=== PATIENT | female | born 1955 | race Caucasian/White ===

== ENCOUNTER → 2017-08-24 | Outpatient (CLI) | payer BC ==
--- NOTE | 2017-08-25 10:24 | MM ---
Reason for exam: screening (asymptomatic). Last mammogram was performed 1 year ago. History: Patient is postmenopausal. Family history of breast cancer in mother at age 55. Physical Findings: A clinical breast exam by your physician is recommended on an annual basis and results should be correlated with mammographic findings. MG Screening Mammo w CAD Bilateral CC and MLO view(s) were taken. Prior study comparison: August 23, 2016, bilateral MG screening mammo w CAD. August 20, 2015, bilateral MG screening mammo w CAD. July 12, 2014, bilateral MG screening mammo w CAD. The breast tissue is heterogeneously dense. This may lower the sensitivity of mammography. No significant changes when compared with prior studies. ASSESSMENT: Negative, BI-RAD 1 RECOMMENDATION: Routine screening mammogram of both breasts in 1 year.
== END | disposition home or self-care (01) ==
LOC: RADMAMWWP 15:35
PROVIDERS: ATTEND Obstetrics & Gynecology
DX: Z12.31 Encounter for screening mammogram for malignant neoplasm of breast (principal); Z80.3 Family history of malignant neoplasm of breast

== ENCOUNTER → 2017-12-23 | Outpatient (CLI) | payer BC ==
--- NOTE | 2017-12-23 15:24 | BD ---
EXAMINATION TYPE: MG DEXA axial skeleton. DATE OF EXAM: 12/23/2017 COMPARISON: NONE CLINICAL HISTORY: Postmenopausal female. Osteoporosis screening. Height: 64 IN Weight: 163 LBS FRAX RISK QUESTIONS: Alcohol (3 or more units per day): NO Family History (Parent hip fracture): NO Glucocorticoids (More than 3mos): NO (Ex: prednisone, prednisolone, methylprednisolone, dexamethasone, and hydrocortisone). History of Fracture in Adulthood: NO Secondary Osteoporosis: 1. Type 1 Diabetes: NO 2. Hyperthyroidism: NO 3. Menopause before 45: NO 4. Malnutrition: NO 5. Chronic liver disease: NO Rheumatoid Arthritis: NO Current Tobacco Use: NO RISK FACTORS HISTORY OF: History of Wrist Fracture: YES CATHRYN When: AGE 16 Active: YES Diet low in dairy products/other sources of calcium: YES Postmenopausal woman: AGE 53 MEDICATIONS: Additional Medications: NONE EXAM MEASUREMENTS: Bone mineral densitometry was performed using the [employer] System. Bone mineral density as measured about the Lumbar spine is: ----- L1-L4(G/cm2): 1.046 T Score Values are as follows: ----- L2: -1.7 ----- L3: -1.6 ----- L4: -0.6 ----- L1-L4: -1.1 Bone mineral density has: Decreased -1.8% since study of: 10/08/2015 Bone mineral density about the R hip (g/cm2): 0.812 Bone mineral density about the L hip (g/cm2): 0.819 T Score values are as follows: -----R Neck: -1.6 -----L Neck: -1.6 -----R Total: -0.8 -----L Total: -0.8 Bone mineral density has: Increased 1.2% since study of: 10/08/2015 IMPRESSION: Osteopenia (T Score between -2.5 and -1 ) as noted by T score values with regards to the bilateral hi ps. There is slightly increased risk of fracture and the patient may be considered for treatment. Re-Screen 2-5 years. NOTE: T-SCORE=SD OF THE YOUNG ADULT MEAN.
== END | disposition home or self-care (01) ==
LOC: RADBDWWP 14:54
PROVIDERS: ATTEND Obstetrics & Gynecology
DX: M85.852 Other specified disorders of bone density and structure, left thigh (principal); M85.851 Other specified disorders of bone density and structure, right thigh
CPT/HCPCS: 77080

== ENCOUNTER → 2018-09-08 | Outpatient (CLI) | payer BC ==
--- NOTE | 2018-09-11 09:20 | MM ---
Reason for exam: screening (asymptomatic). Last mammogram was performed 1 year ago. History: Patient is postmenopausal. Family history of breast cancer in mother at age 55. Physical Findings: A clinical breast exam by your physician is recommended on an annual basis and results should be correlated with mammographic findings. MG Screening Mammo w CAD Bilateral CC and MLO view(s) were taken. Prior study comparison: August 24, 2017, bilateral MG screening mammo w CAD. August 23, 2016, bilateral MG screening mammo w CAD. The breast tissue is heterogeneously dense. This may lower the sensitivity of mammography. Stable benign calcifications. Focal asymmetry inner lower left breasat 6.1cm from nipple. This finding is changed when compared with previous exams. ASSESSMENT: Incomplete: need additional imaging evaluation, BI-RAD 0 RECOMMENDATION: Special view mammogram of the left breast. If lesion persists on supplemental views, image directed ultrasound is recommended. [facility] will attempt to contact patient to return for supplemental views and ultrasound if indicated.
== END | disposition home or self-care (01) ==
LOC: RADMAMWWP 10:54
PROVIDERS: ATTEND Obstetrics & Gynecology
DX: Z12.31 Encounter for screening mammogram for malignant neoplasm of breast (principal); Z80.3 Family history of malignant neoplasm of breast
CPT/HCPCS: 77067

== ENCOUNTER → 2018-09-20 | Outpatient (CLI) | payer BC ==
--- NOTE | 2018-09-21 09:27 | MM ---
Reason for exam: additional evaluation requested from abnormal screening. Last mammogram was performed less than 1 month ago. History: Patient is postmenopausal. Family history of breast cancer in mother at age 55. Physical Findings: Nurse did not find any significant physical abnormalities on exam. MG 3D Work Up W/Cad LT CC and MLO view(s) were taken of the left breast. Prior study comparison: September 08, 2018, bilateral MG screening mammo w CAD. August 24, 2017, bilateral MG screening mammo w CAD. The breast tissue is heterogeneously dense. This may lower the sensitivity of mammography. There is no discrete abnormality including area of concern. These results were verbally communicated with the patient and result sheet given to the patient on 09/20/18. ASSESSMENT: Probably benign, BI-RAD 3 RECOMMENDATION: Follow-up diagnostic mammogram of the left breast in 6 months.
== END | disposition home or self-care (01) ==
LOC: RADMAMWWP 09:36
PROVIDERS: ATTEND Obstetrics & Gynecology
DX: R92.8 Other abnormal and inconclusive findings on diagnostic imaging of breast (principal)
CPT/HCPCS: 77061; 77065

== ENCOUNTER → 2019-03-21 | Outpatient (CLI) | payer BC ==
--- NOTE | 2019-03-21 11:32 | MM ---
Reason for exam: follow-up at short interval from prior study. Last mammogram was performed 6 months ago. History: Patient is postmenopausal. Family history of breast cancer in mother at age 55. Physical Findings: Nurse did not find any significant physical abnormalities on exam. MG 3D Diag Mammo W/Cad LT CC and MLO view(s) were taken of the left breast. Prior study comparison: September 20, 2018, left breast MG 3d work up w/cad LT. September 08, 2018, bilateral MG screening mammo w CAD. The breast tissue is heterogeneously dense. This may lower the sensitivity of mammography. There is no discrete abnormality including area of concern. No significant new findings when compared with previous films. These results were verbally communicated with the patient and result sheet given to the patient on 03/21/19. ASSESSMENT: Negative, BI-RAD 1 RECOMMENDATION: Return to routine screening mammogram schedule for both breasts. Back on schedule.
== END | disposition home or self-care (01) ==
LOC: RADMAMWWP 10:57
PROVIDERS: ATTEND Obstetrics & Gynecology
DX: R92.8 Other abnormal and inconclusive findings on diagnostic imaging of breast (principal)
CPT/HCPCS: 77061; 77065

== ENCOUNTER → 2019-08-17 | Outpatient (CLI) | payer BC ==
--- NOTE | 2019-08-17 11:57 | MR ---
EXAMINATION TYPE: MR shoulder RT wo con DATE OF EXAM: 08/17/2019 COMPARISON: X-ray dated 08/01/2019 HISTORY: Right pain shoulder TECHNIQUE: Multiplanar, multisequence imaging of the right shoulder is performed without contrast. FINDINGS: There is a 5 to 6 mm near complete through thickness tear of the posterior fibers of the mayes praspinatus tendon near its attachment. Additional 2 mm area of abnormal signal along the anterior fi bers of the supraspinatus tendon near its attachment suspicious for partial tear. Trace amount of flu id in the subacromial bursa. Infraspinatus tendon is intact. Subscapularis tendon intact. Bicipital tendon is well situated the bicipital groove. Intracapsular portion of the biceps tendon an d biceps anchor intact. Mild narrowing of the AC joint with minimal mass effect and impingement upon the supraspinatus tendon and muscle. Bony labrum are intact by nonarthrogram technique. Tiny cyst involving the humeral head can be associated with chronic impingement. IMPRESSION: 1. There appears to be a 5 to 6 mm near complete through thickness tear posterior fibers supraspinatu s tendon near its attachment with no retraction. There is also very minimal impingement from the AC j oint. 2. Findings are also suspicious for a 2 to 3 mm partial tear along the anterior fibers of the suprasp inatus tendon near its attachment.
== END ==
LOC: RADMRIMAIN 10:02
PROVIDERS: ATTEND Orthopaedic Surgery
DX: M75.41 Impingement syndrome of right shoulder (principal); M25.511 Pain in right shoulder

== ENCOUNTER → 2019-09-06 | Outpatient (CLI) | payer BC ==
[2019-09-06 10:46] LABS: Basophils # (A) 0.1 k/uL (0-0.2); Basophils % (A) 1 %; Eosinophils # (A) 0.3 k/uL (0-0.7); Eosinophils % (A) 4 %; HCT 41.7 % (34.0-46.0); HGB 13.7 gm/dL (11.4-16.0); Lymphocytes # (A) 1.5 k/uL (1.0-4.8); Lymphocytes % (A) 20 %; MCH 27.9 pg (25.0-35.0); MCHC 32.8 g/dL (31.0-37.0); MCV 84.9 fL (80.0-100.0); Mean Platelet Volume 5.4; Monocytes # (A) 0.3 k/uL (0-1.0); Monocytes % (A) 5 %; Neutrophils % (A) 69 %; Platelet Count 349 k/uL (150-450); RBC 4.91 m/uL (3.80-5.40); RDW 12.2 % (11.5-15.5); WBC 7.2 k/uL (3.8-10.6)
[2019-09-06 10:56] LABS: Potassium 4.6 mmol/L (3.5-5.1)
== END | disposition home or self-care (01) ==
LOC: LABPAT 09:56
PROVIDERS: ATTEND Orthopaedic Surgery
DX: Z01.810 Encounter for preprocedural cardiovascular examination (principal); Z01.812 Encounter for preprocedural laboratory examination; M75.41 Impingement syndrome of right shoulder
CPT/HCPCS: 36415; 80051; 85025; 93005

== ENCOUNTER 2019-10-03 08:20 | Day surgery (SDC) | payer BC ==
[2019-10-02 08:38] VITALS: BMI 28.3
--- NOTE | 2019-10-02 13:37 | HP ---
HISTORY AND PHYSICAL DATE OF SURGERY: Surgery is scheduled for 10/03/2019. Marycruz Benjamin is a 64-year-old patient seen with progressive right shoulder pain. We discussed treatment options with her. She elected to proceed with right shoulder arthroscopy. Consent was obtained. PAST MEDICAL HISTORY: Noncontributory. PAST SURGICAL HISTORY: Knee arthroscopy. DAILY MEDICATIONS: None. ALLERGIES: None reported. SOCIAL HISTORY: She denies tobacco use. PHYSICAL EXAMINATION: Physical evaluation of right shoulder: Flexion 140 degrees, abduction 120 degrees, external rotation is 40 degrees with weakness. There is tenderness along the anterolateral acromion rotator cuff insertion site. Impingement sign is positive at 90 degrees. Drop-arm sign is positive. Her distal neurovascular exam is intact. Radiographs of the right shoulder revealed acromioclavicular joint osteoarthritis. Right shoulder MRI revealed rotator cuff tendon tear. IMPRESSION: Right shoulder impingement with rotator cuff tear. PLAN: Right shoulder arthroscopy with subacromial decompression, arthroscopic rotator cuff repair, Amy procedure and debridement. MMODL / IJN: [id number] /
[~2019-10-03 08:20] MED LIST: DEXAMETHASONE SOD PHOSPHATE 10 MG/ML 1 ML VIAL IV ONE; HYDROmorphone 0.5 MG/0.5 ML SYRINGE IVP PRN; LACTATED RINGERS 1,000 ML IV SCH; LIDOCAINE 1% 20 ML VIAL (10MG/ML) FOR IV START INTRADERMA PRN; MIDAZOLAM 2 MG/2 ML VIAL IV PRN; ONDANSETRON 4 MG/2 ML VIAL IVP ONE; SCOPOLAMINE 1.5MG/72HR PATCH TRANSDERM ONE
[2019-10-03] MEDS ORDERED: LIDOCAINE 1% INJ 10MG/ML (20 ML MDV) ONE (09:49)
[2019-10-03] MEDS ORDERED: SUCCINYLCHOLINE CHLORIDE VIAL 200 MG/10 ML VIAL IV ONE (09:49)
[2019-10-03] MEDS ORDERED: PROPOFOL 10 MG/ML 20 ML VIAL IV ONE (09:49)
[2019-10-03] MEDS ORDERED: fentaNYL (PF) 50 MCG/ML 2 ML AMP ONE (09:49)
[2019-10-03] MEDS ORDERED: ROPIVACAINE 5 MG/ML 30 ML VIAL ONE (09:49)
[2019-10-03] MEDS ORDERED: DEXAMETHASONE SOD PHOSPHATE 4 MG/ML 1 ML VIAL ONE (09:49)
[2019-10-03] MEDS ORDERED: MIDAZOLAM 2 MG/2 ML VIAL ONE (09:49)
[2019-10-03 11:22] VITALS: TEMP 97
--- NOTE | 2019-10-03 11:25 | P.OP ---
Date of Procedure: 10/03/19 Preoperative Diagnosis: Right shoulder impingement Postoperative Diagnosis: 1. Right shoulder rotator cuff tear 2. Right shoulder impingement 3. Right shoulder partial long head biceps tendon tear Procedure(s) Performed: 1. Right shoulder arthroscopic rotator cuff repair 2. Right shoulder arthroscopic subacromial decompression 3. Right shoulder arthroscopic biceps tenotomy Implants: 1Arthrex 5.5 swivel lock anchor Anesthesia: GETA, regional (Interscalene block) Surgeon: Miles Sawyer Youth Specialist #1: Elias Payton Estimated Blood Loss (ml): 12 Pathology: none sent Condition: stable Disposition: PACU Indications for Procedure: 64-year-old patient seen with progressive right shoulder pain. After treatment options were discussed, she elected to proceed with arthroscopy. Operative Findings: see description of procedure Description of Procedure: Patient underwent an interscalene block by department of anesthesia. The patient was then taken to the operative suite. The patient underwent a general anesthetic by the department of anesthesia. The patient was placed into a lateral position and secured. There was appropriate padding of the bony promi nence. Right shoulder was then prepped and draped in normal sterile orthopedic fashion. We placed the extremity in 10 pounds of longitudinal traction. A posterior incision was now made for a posterior working portal site. The trocar and cannula were inserted into the glenohumeral joint. Arthroscopy was initiated. Spinal needle was now inserted anteriorly, to ascertain the anterior working portal site. An incision was now made in that area, a trocar was inserted followed by a probe. There was partial tearing and hyperemia long head biceps tendon. There was some mild superficial fraying of the superior labrum. The remainder of the labrum appeared intact and stable. There were grade 1 chondromalacia changes of the superior portion humeral head with no osteochondral tears present. I performed an arthroscopic biceps tenotomy. I probed the superior labrum and it was stable. Instruments now removed from glenohumeral joint. Utilizing the posterior working portal site, the trocar and cannula were inserted into the subacromial space. Arthroscopy initiated. I made an incision 2 fingerbreadths lateral to the acromion. I introduced my trocar followed by my [employer]Care ablator. I now began ablating thick subacromial bursal tissue, which exposed the undersurface of the anterior acromion. There was diminished subacromial space. There was a very prominent anterior acromion. A motorized bur was introduced and a subacromial decompression was performed. I also excised some osteophytes off the inferior aspect of the distal clavicle. The acromioclavicular joint was noted have moderate arthritis. I did not think enough toward a Amy procedure. I turned my attention to the rotator cuff tendon. We probed the area and noted a full-thickness tear along the distal supraspinatus. I debrided the margins getting a good stable tendon tissue. The defect measured about 11 0.5 cm. I abraded the footprint with a motorized bur. I passed 2 everted mattress sutures through good bites of rotator cuff tendon. I punched along the footprint area for insertion of an anchor. All 4 limbs of suture were now placed through the eyelet of a 5.5 Arthrex anchor. The eyelet of the anchor was now placed into a pre-punch hole. Frank SALAZAR tension the sutures probe silvia while the anchor in position. Frank SALAZAR now deployed the anchor with good purchase noted. All residual suture limbs were now clipped. We had good compression of the tendon along the entire footprint. I injected 1 mL Renyte intra-articular. Instruments were now removed from the portal sites. All portal sites were approximated with nylon suture. Sterile dressings were applied followed by a shoulder sling. Elias SALAZAR assisted in this complex case. The patient was awakened, transferred to a bed, and taken to recovery in stable condition.
[2019-10-03] MEDS ORDERED: LACTATED RINGERS 1,000 ML IV ONE (11:35)
[2019-10-03 11:57] VITALS: RESP 16
[2019-10-03 12:20] VITALS: BP 151/83; PULSE 70
--- NOTE | 2019-10-08 13:52 | P.ANPRN ---
Procedure Note - Anesthesia - Nerve Block Performed Right Interscalene Single Time Out Performed: Yes Date of Procedure: 10/03/19 Procedure Start Time: 09:05 Procedure Stop Time: 09:10 Location of Patient: PreOp Indication: Acute Post-Operative Pain, Requested by Surgeon Sedation Type: Sedate with meaningful contact maintained Preparation: Sterile Prep Position: Supine Needle Types: Pajunk Needle Gauge: 21 Ultrasound used to visualize needle placement: Yes Ultrasound used to observe medication spread: Yes Blood Aspirated: No Pain Paresthesia on Injection Noted: No Resistance on Injection: Normal Image Stored and Saved: Yes Events: Uneventful and Well Tolerated (ropi .5% 30cc plus dexamethasone 4 mg)
== END 2019-10-03 13:05 | disposition home or self-care (01) ==
LOC: OR 08:20
PROVIDERS: ATTEND Orthopaedic Surgery
DX: M75.101 Unspecified rotator cuff tear or rupture of right shoulder, not specified as traumatic (principal); M75.41 Impingement syndrome of right shoulder; S46.111A Strain of muscle, fascia and tendon of long head of biceps, right arm, initial encounter; X58.XXXA Exposure to other specified factors, initial encounter; Z88.1 Allergy status to other antibiotic agents; Z88.2 Allergy status to sulfonamides; Z91.048 Other nonmedicinal substance allergy status
CPT/HCPCS: 29827; 29826; 64415; 76942; C1713 ×2; Q4212; J2250; J0330; J1100 ×2; J0690; J2405; J2001; J3010; J2795; J2704

== ENCOUNTER → 2020-01-07 | Outpatient (CLI) | payer BC ==
--- NOTE | 2020-01-07 11:59 | BD ---
EXAMINATION TYPE: Axial Bone Density DATE OF EXAM: 01/07/2020 COMPARISON: NONE CLINICAL HISTORY: 64-year-old female disorder of bone, postmenopausal screening. Height: 5 FT 4 IN Weight: 169 FRAX RISK QUESTIONS: Alcohol (3 or more units per day): NO Family History (Parent hip fracture): NO Glucocorticoids (More than 3mos): NO (Ex: prednisone, prednisolone, methylprednisolone, dexamethasone, and hydrocortisone). History of Fracture in Adulthood: NO Secondary Osteoporosis: 1. Type 1 Diabetes: NO 2. Hyperthyroidism: NO 3. Menopause before 45: NO 4. Malnutrition: NO 5. Chronic liver disease: NO Rheumatoid Arthritis: NO Current Tobacco Use: NO RISK FACTORS HISTORY OF: Active: YES Postmenopausal woman: AGE EARLY 50'S MEDICATIONS: Additional Medications: PAIN MEDS CURRENTLY FOR SHOULDER SURG Additional History: EXAM MEASUREMENTS: Bone mineral densitometry was performed using the [employer] System. Bone mineral density as measured about the Lumbar spine is: ----- L1-L4(G/cm2): 0.960 T Score Values are as follows: ----- L2: -2.5 ----- L3: -1.8 ----- L4: -1.4 ----- L1-L4: -1.8 Bone mineral density has: DECREASED -7.1 % since study of: 2017 Bone mineral density about the R hip (g/cm2): 0.779 Bone mineral density about the L hip (g/cm2): 0.826 T Score values are as follows: -----R Neck: -1.9 -----L Neck: -1.5 -----R Total: -1.2 -----L Total: -0.8 Bone mineral density has: DECREASED -2.6 % since study of: 2018 IMPRESSION: Osteopenia (T Score between -2.5 and -1). There is slightly increased risk of fracture and the patient may be considered for treatment. Re-Screen 2-5 years. NOTE: T-SCORE=SD OF THE YOUNG ADULT MEAN.
--- NOTE | 2020-01-08 09:54 | MM ---
Reason for exam: screening (asymptomatic). Last mammogram was performed 10 months ago. History: Patient is postmenopausal. Family history of breast cancer in mother at age 55. Physical Findings: A clinical breast exam by your physician is recommended on an annual basis and results should be correlated with mammographic findings. MG 3D Screening Mammo W/Cad Bilateral CC and MLO view(s) were taken. Prior study comparison: March 21, 2019, left breast MG 3d diag mammo w/cad LT. September 20, 2018, left breast MG 3d work up w/cad LT. The breast tissue is heterogeneously dense. This may lower the sensitivity of mammography. No significant changes when compared with prior studies. ASSESSMENT: Benign, BI-RAD 2 RECOMMENDATION: Routine screening mammogram of both breasts in 1 year.
== END | disposition home or self-care (01) ==
LOC: RADMAMWWP 09:15
PROVIDERS: ATTEND Obstetrics & Gynecology
DX: Z12.31 Encounter for screening mammogram for malignant neoplasm of breast (principal); M85.80 Other specified disorders of bone density and structure, unspecified site
CPT/HCPCS: 77063; 77067; 77080

== ENCOUNTER → 2021-02-24 | Outpatient (CLI) | payer BC ==
--- NOTE | 2021-02-26 10:55 | MM ---
Reason for exam: screening (asymptomatic). Last mammogram was performed 1 year and 2 months ago. History: Patient is postmenopausal. Family history of breast cancer in mother at age 55. Took hormonal contraceptives for 5 years. Physical Findings: A clinical breast exam by your physician is recommended on an annual basis and results should be correlated with mammographic findings. MG Screening Mammo w CAD Bilateral CC and MLO view(s) were taken. Prior study comparison: January 07, 2020, bilateral MG 3d screening mammo w/cad. March 21, 2019, left breast MG 3d diag mammo w/cad LT. The breast tissue is heterogeneously dense. This may lower the sensitivity of mammography. No significant changes when compared with prior studies. ASSESSMENT: Benign, BI-RAD 2 RECOMMENDATION: Routine screening mammogram of both breasts in 1 year.
== END | disposition home or self-care (01) ==
LOC: RADMAMWWP 12:04
PROVIDERS: ATTEND Obstetrics & Gynecology
DX: Z12.31 Encounter for screening mammogram for malignant neoplasm of breast (principal); Z78.0 Asymptomatic menopausal state; Z80.3 Family history of malignant neoplasm of breast
CPT/HCPCS: 77067

== ENCOUNTER → 2021-03-10 | Outpatient (CLI) | payer BC ==
--- NOTE | 2021-03-10 16:18 | XR ---
EXAMINATION TYPE: XR KUB DATE OF EXAM: 03/10/2021 4:10 PM CLINICAL HISTORY: History of renal stones with left-sided pain TECHNIQUE: Two supine KUB images of the abdomen are obtained. COMPARISON: None. FINDINGS: Scattered gas is seen in non-distended small bowel loops. Gas and fecal material is seen in non-distended colon. The amount of fecal material is prominent throughout the right and transverse c olon. Lung bases are clear. Left-sided pelvic phleboliths. Visualized osseous structures are intact. IMPRESSION: Moderate to severe proximal to mid colonic fecal stasis. No definitive nephrolithiasis.
--- NOTE | 2021-03-10 20:29 | US ---
EXAMINATION TYPE: US kidneys/renal and bladder DATE OF EXAM: 03/10/2021 COMPARISON: KUB today CLINICAL HISTORY: N20.0 Calculus of kidney. Left flank pain in November; long lasting UTI; prior renal stones per patient EXAM MEASUREMENTS: Right Kidney: 9.3 x 5.6 x 3.9 cm Left Kidney: 10.3 x 4.0 x 5.5 cm Post Void Residual Volume: 14.1 mL Right Kidney: superior pole hyperechoic round focus is noted in sinus = 1.9 x 1.9 x 1.8cm. Left Kidney: moderate hydronephrosis is noted; inferior pole hyperechoic focus = 0.6 x 0.6 x 0.4cm wi th posterior shadowing associated with it. Bladder: wnl Bilateral Jets seen: yes Normal Post Void Residual: yes The urinary bladder is anechoic. Bilateral ureteral jets are seen. IMPRESSION: 1. Hyperechoic mass upper pole right kidney may reflect angiomyolipoma. CT is recommended for further evaluation. 2. Moderate left-sided hydronephrosis.
== END | disposition home or self-care (01) ==
LOC: RADUSWWP 15:38
PROVIDERS: ATTEND Urology
DX: K59.89 Other specified functional intestinal disorders (principal); N13.30 Unspecified hydronephrosis; Z87.440 Personal history of urinary (tract) infections
CPT/HCPCS: 74018; 76770

== ENCOUNTER → 2021-03-26 | Outpatient (CLI) | payer BC ==
--- NOTE | 2021-03-27 05:04 | CT ---
EXAMINATION TYPE: CT urogram wo/w con DATE OF EXAM: 03/26/2021 COMPARISON: HISTORY: Hydronephrosis, blockage of left kidney CT DLP: 2730 mGycm Automated exposure control for dose reduction was used. CONTRAST: Performed without and with IV Contrast, patient injected with 100 mL of Isovue 300. Images were obtained from the diaphragm to the floor the pelvis without and with IV contrast. There a re also delayed images. Lung bases are clear of consolidation. There is hiatal hernia. Liver spleen gallbladder pancreas appe ar intact. The bile ducts are not dilated. Stomach has normal size. There is no adrenal mass. There is rounded 1.6 cm fat density mass upper pole right kidney. There is 5 mm calculus lower pole right kidney. There is 8mm calculus lower pole left kidney. There is moderat e left-sided hydronephrosis. There is cortical thinning in the left kidney compared to the right. Del ayed images show a delayed left side pyelogram. There is however contrast puddling in the left renal dilated calyces. I do not suspect left side obstruction. There is left-sided hydroureter. There is 1. 5 cm calculus at the left ureterovesical junction. There is a second distal ureteral calculus measuri ng 6 mm. There is also a 2 mm calculus in the posterior distal left ureter. The bladder distends smoo thly. There is no evidence of bladder mass. There is no retroperitoneal adenopathy. Right ureter has normal size. There is retained fecal material in the large bowel. There is no inguinal hernia. There is no free fl uid in the pelvis. The lumbar vertebra appear intact. There is some narrowing at L4-5 disc space. There is no compressio n fracture. The posterior elements are intact. Bony pelvis is intact. Appendix is not seen. IMPRESSION: Bilateral renal calculi. There are multiple calculi in the distal left ureter with evidence of chroni c obstruction of the left upper collecting system. There is partial obstruction. Mild left renal atro phy. No sign of obstruction of the right kidney. There is a lipoma in the upper pole right kidney. Constipation.
== END | disposition home or self-care (01) ==
LOC: RADCTMAIN 08:30
PROVIDERS: ATTEND Urology
DX: N13.2 Hydronephrosis with renal and ureteral calculous obstruction (principal); K59.00 Constipation, unspecified; N26.1 Atrophy of kidney (terminal); D17.71 Benign lipomatous neoplasm of kidney
CPT/HCPCS: 82565; 84520; 74178; 74400; Q9967

== ENCOUNTER → 2021-04-03 | Day surgery (SDC) | payer BC ==
--- NOTE | 2021-04-02 19:28 | P.GSHP ---
History of Present Illness H&P Date: 04/02/21 65 yo femalewho came to see me for recurrent uti. I did and us that identified l hydro I did a ct urogram that identified a large distal ureteral stone on the left. She also has bilateral renal stones. she comes for left ureteroscopy with laser lithotripsy - Constitutional Constitutional: Denies chills, Denies fever - EENT Eyes: denies blurred vision, denies pain Ears, nose, mouth and throat: Denies headache, Denies sore throat - Cardiovascular Cardiovascular: Denies chest pain, Denies shortness of breath - Respiratory Respiratory: Denies cough, Denies 7 - Gastrointestinal Gastrointestinal: Denies abdominal pain, Denies diarrhea, Denies nausea, Denies vomiting - Genitourinary (Female) Genitourinary: Denies dysuria, Denies hematuria - Genitourinary (Male) Genitourinary: Denies dysuria, Denies hematuria - Musculoskeletal Musculoskeletal: Denies myalgias - Integumentary Integumentary: Denies pruritus, Denies rash - Neurological Neurological: Denies numbness, Denies weakness - Psychiatric Psychiatric: Denies anxiety, Denies depression - Endocrine Endocrine: Denies fatigue, Denies weight change Past Medical History Past Medical History: No Reported History Additional Past Medical History / Comment(s): KIDNEY STONES History of Any Multi-Drug Resistant Organisms: None Reported Past Surgical History: Orthopedic Surgery Additional Past Surgical History / Comment(s): BILAT KNEE ARTHRO, RT ROTATOR CUFF, COLONOSCOPY, Past Anesthesia/Blood Transfusion Reactions: No Reported Reaction Additional Past Anesthesia/Blood Transfusion Reaction / Comment(s): STATES SHE GOT A VERY ITCHY RASH DOWN HER LEG AFTER THE LEFT KNEE ARTHO Smoking Status: Never smoker - Past Family History Mother Family Medical History: Cancer Father Family Medical History: Hypertension Additional Family Medical History / Comment(s): AORTIC ANEURYSM Medications and Allergies Home Medications Medication Instructions Recorded Confirmed Type Cephalexin [Keflex] 500 mg PO Q12HR 03/31/21 03/31/21 History Allergies Allergy/AdvReac Type Severity Reaction Status Date / Time iodine Allergy Itching. Verified 10/03/19 08:41 RASH. nitrofurantoin AdvReac Rash/Hives Verified 10/03/19 09:04 [From Macrobid] sulfamethoxazole AdvReac Rash/Hives Verified 03/31/21 13:14 [From Bactrim] trimethoprim [From Bactrim] AdvReac Rash/Hives Verified 03/31/21 13:14 Surgical - Exam - General well developed, well nourished, no distress - Eyes PERRL - ENT no hearing loss - Neck trachea midline - Respiratory normal expansion, normal respiratory effort - Cardiovascular Rhythm: regular - Abdomen Abdomen: soft, non tender - Neurologic normal coordination, normal sensation - Musculoskeletal normal gait, normal posture - Psychiatric oriented to person, oriented to place, speech is normal, memory intact Results - Imaging CT scan - abdomen: report reviewed, image reviewed CT scan - pelvis: report reviewed, image reviewed Assessment and Plan Assessment: Impression: Left distal ureteral stone. Plan: Left ureteroscopy withlaser lithotripsy and possible stent.
[~2021-04-03] MED LIST changes: +AMPICILLIN 1,000 MG in SODIUM CHLORIDE 0.9% 50 ML IVPB PRN; -DEXAMETHASONE SOD PHOSPHATE 10 MG/ML 1 ML VIAL IV ONE; +DEXAMETHASONE SOD PHOSPHATE 4 MG/ML 1 ML VIAL IV ONE; +GENTAMICIN 100 MG in SODIUM CHLORIDE 0.9% 100 ML IVPB PRN; +IOPAMIDOL-370 50ML BTL IRRIGATION ONE; +LACTATED RINGERS 1,000 ML IV ONE; +LIDOCAINE 1% (10MG/ML) FOR IV START INTRADERMA PRN; -LIDOCAINE 1% 20 ML VIAL (10MG/ML) FOR IV START INTRADERMA PRN; +LIDOCAINE 1% INJ 10MG/ML (20 ML MDV) ONE; +MIDAZOLAM 2 MG/2 ML VIAL ONE; +PROPOFOL 10 MG/ML 20 ML VIAL IV ONE; -SCOPOLAMINE 1.5MG/72HR PATCH TRANSDERM ONE; +SUCCINYLCHOLINE CHLORIDE 100 MG/5 ML SYR IV ONE; +fentaNYL (PF) 50 MCG/ML 2 ML AMP ONE
--- NOTE | 2021-04-03 12:20 | XR ---
EXAMINATION TYPE: XR KUB DATE OF EXAM: 04/03/2021 HISTORY: Pain Comparison: 03/10/2021 Single KUB is submitted for interpretation. Examination is limited by moderate to severe fecal stasis throughout the colon. Findings: Right renal calculi: 4 mm calculus right kidney is difficult to exclude. Right ureteral calculi: None Visualized. Left renal calculi: None Visualized. Left ureteral calculi: 1.4 cm distal left ureteral calculus with smaller additional adjacent calculu s difficult to exclude measuring 2.3 mm. Pelvic calcifications: None Visualized. Bowel gas pattern is unremarkable. No free air. No mass effects. IMPRESSION: 1. As above.
--- NOTE | 2021-04-03 16:28 | P.OP ---
Date of Procedure: 04/03/21 Preoperative Diagnosis: Left ureteral stone with obstruction and hydronephrosis Postoperative Diagnosis: Same Procedure(s) Performed: Cystoscopy, left ureteroscopy laser lithotripsy placement of 6 x 24 double-J catheter Anesthesia: JOHANNE Surgeon: Eddy Fish Estimated Blood Loss (ml): 0 Pathology: other Condition: stable (Stone) Disposition: PACU Indications for Procedure: The patient is 65. She came for recurrent urinary tract infections. Ultrasound showed left hydronephrosis. Computed tomography scan identified a 15 mm stone obstructing left distal ureter with proximal hydronephrosis. This is probably the cause of her recurrent infections. She's been placed on culture specific antibiotics preoperatively I'll get some intravenously intraoperatively Description of Procedure: The patient is brought to the operating suite. She is given a general endotracheal anesthesia. She's placed lithotomy position with sterile prep and drape. She has a notable cystocele on examination. The cystocele is reduced with is. I introduced the cystoscope with Foroblique lenses into the bladder. There is no significant cystitis. There is a notable cystocele which has been reduced. Both ureteral orifices are normal. The left ureteral orifice is dilated with the 8-English cone-tipped catheter. The stone was seen on fluoroscopy near the intravesical tunnel on the left. Pass a semirigid scope up into the distal ureter. All I can see his edema and mucosal debris around where the stone is. I can see a faint yellow appearance mucosal covering of the stone. I attempted several times to pass an 035 wire by the stone but failed. I thus take the 200 laser probe to the semirigid scope and break through the edema and identify the stone. I then tediously break the stone with 8 W of energy. I slowly remove all the stone. I finally break through the stone and able to see the ureter proximal to the left stone. I cleaned out the stone completely. There is a lot of edema and injury to the ureter from where the stone is lodged for an extended period of time a. There is proximal hydroureteronephrosis. Through the ureteroscope and pass an 035 wire up into the kidney. I removed the ureteroscope and I then pass over the wire a 6 x 24 double-J catheter that coils in the renal pelvis and the bladder the bladder is free to of stony debris. The bladder strain the patient's awake and returned recovery in good condition. She tolerated procedure well. Blood loss is minimal. She'll be discharged home upon recovery and found the office in one week. The stent will remain in 3-4 weeks.
[2021-04-03 16:40] VITALS: TEMP 96.8
[2021-04-03 17:40] VITALS: RESP 17
[2021-04-03 17:55] VITALS: BP 164/83; PULSE 63
--- NOTE | 2021-04-03 19:13 | FL ---
EXAMINATION TYPE: FL guidance operating room DATE OF EXAM: 04/03/2021 HISTORY: Fluoroscopy time 18 seconds of fluoroscopy provided. IMPRESSION: 1. Fluoroscopy time.
== END | disposition home or self-care (01) ==
LOC: OR 11:18
PROVIDERS: ATTEND Urology
DX: N13.2 Hydronephrosis with renal and ureteral calculous obstruction (principal); Z87.442 Personal history of urinary calculi; K21.9 Gastro-esophageal reflux disease without esophagitis; Z98.890 Other specified postprocedural states; Z80.9 Family history of malignant neoplasm, unspecified; Z82.49 Family history of ischemic heart disease and other diseases of the circulatory system; Z88.1 Allergy status to other antibiotic agents; Z88.2 Allergy status to sulfonamides; Z91.048 Other nonmedicinal substance allergy status
CPT/HCPCS: 82365; 74018; 52356; C2625; C1758; C1769; J0713; J2250; J1100; J2405; J2001; J3010; J0330; J2704; Q9967

== ENCOUNTER → 2022-03-31 | Outpatient (CLI) | payer MEDICARE ==
--- NOTE | 2022-03-31 11:30 | FL ---
ESOPHOGRAM. HISTORY: Dysphagia Esophagram was performed per the air contrast technique. The patient swallowed barium and effervesce nt crystals without difficulty or delay. Esophageal peristalsis and motility appear to be within normal limits. There is no evidence for filling defect, mass or diverticulum. Small nonreducible hiatal hernia. Subsequently single contrast cervical esophagram was performed which fails demonstrate evidence for a spiration penetration or mass. IMPRESSION: Small nonreducible hiatal hernia.
== END | disposition home or self-care (01) ==
LOC: RADUSWWP 10:42
PROVIDERS: ATTEND Otolaryngology
DX: K44.9 Diaphragmatic hernia without obstruction or gangrene (principal)
CPT/HCPCS: 74220

== ENCOUNTER → 2022-05-19 | Outpatient (CLI) | payer MEDICARE ==
--- NOTE | 2022-05-20 08:16 | MM ---
Reason for Exam: Screening (asymptomatic). Last mammogram was performed 1 year(s) and 2 month(s) ago. Patient History: Menarche at age 13. First Full-Term at age 25. Postmenopausal. Patient used Hormonal Contraceptives for 5 years. Mother had breast cancer, age 55. Risk Values: Angelica 5 year model risk: 3.2%. NCI Lifetime model risk: 11.3%. Prior Study Comparison: 03/21/2019 Left Diagnostic Mammogram, [facility]. 01/07/2020 Bilateral Screening Mammogram, [facility]. 02/24/2021 Bilateral Screening Mammogram, [facility]. Tissue Density: The breast tissue is heterogeneously dense. This may lower the sensitivity of mammography. Findings: Analyzed By CAD. There is no suspicious group of microcalcifications or new suspicious mass in either breast. Stable benign-appearing calcifications noted. Overall Assessment: Benign, BI-RAD 2 Management: Screening Mammogram of both breasts in 1 year. A clinical breast exam by your physician is recommended on an annual basis and results should be correlated with mammographic findings. Electronically signed and approved by: Charles Mark M.D. Radiologis
--- NOTE | 2022-05-21 15:06 | BD ---
EXAMINATION TYPE: Axial Bone Density DATE OF EXAM: 05/19/2022 COMPARISON: 01.07.2020 CLINICAL HISTORY: 67 years year old Female. ICD-10 CODE: M85.88 Disorder of bone Height: 63.2 Weight: 159 FRAX RISK QUESTIONS: NOTHING TO NOTE HERE RISK FACTORS HISTORY OF: History of Wrist Fracture: YES, BILAT CHILD, FELL FROM SWING Diet low in dairy products/other sources of calcium: YES Postmenopausal woman: YES, AT 52 Hyperparathyroidism: NO Adrenal Insufficiency: NO MEDICATIONS: Additional Medications: PAIN MEDS, BP MEDS, VIT D AND CALCIUM Additional History: PAIN SHOULDER, ARTHRITIS, HYPERTENSION, ALLERGIC TO DAIRY EXAM MEASUREMENTS: Bone mineral densitometry was performed using the [employer] System. Bone mineral density as measured about the Lumbar spine is: ----- L1-L4(G/cm2): 1.076 T Score Values are as follows: ----- L1: -1.1 ----- L2: -1.8 ----- L3: -1.4 ----- L4: 0.5 ----- L1-L4: -0.9 Bone mineral density has: Increased 12.1% since study of: 01.07.2020 Bone mineral density about the R hip (g/cm2): 0.905 Bone mineral density about the L hip (g/cm2): 0916 T Score values are as follows: -----R Neck: -1.7 -----L Neck: -1.7 -----R Total: -0.8 -----L Total: -0.7 Bone mineral density has: Increased 3.3% since study of: 01.07.2020 FRAX%s: The graph provided illustrates a 9.9% chance for a major osteoporotic fx and a 1.3% chance fo r the hips probability for fx in 10 years time. IMPRESSION: Osteopenia (T Score between -2.5 and -1). There is slightly increased risk of fracture and the patient may be considered for treatment. Re-Screen 2-5 years. NOTE: T-SCORE=SD OF THE YOUNG ADULT MEAN.
== END | disposition home or self-care (01) ==
LOC: RADMAMWWP 10:13
PROVIDERS: ATTEND Obstetrics & Gynecology
DX: Z12.31 Encounter for screening mammogram for malignant neoplasm of breast (principal); M85.89 Other specified disorders of bone density and structure, multiple sites; Z78.0 Asymptomatic menopausal state
CPT/HCPCS: 77063; 77067; 77080

== ENCOUNTER 2022-05-25 08:06 | Day surgery (SDC) | payer MEDICARE ==
[~2022-05-25 08:06] MED LIST changes: -AMPICILLIN 1,000 MG in SODIUM CHLORIDE 0.9% 50 ML IVPB PRN; -DEXAMETHASONE SOD PHOSPHATE 4 MG/ML 1 ML VIAL IV ONE; -GENTAMICIN 100 MG in SODIUM CHLORIDE 0.9% 100 ML IVPB PRN; -HYDROmorphone 0.5 MG/0.5 ML SYRINGE IVP PRN; -IOPAMIDOL-370 50ML BTL IRRIGATION ONE; -LACTATED RINGERS 1,000 ML IV ONE; -LIDOCAINE 1% INJ 10MG/ML (20 ML MDV) ONE; -MIDAZOLAM 2 MG/2 ML VIAL IV PRN; -MIDAZOLAM 2 MG/2 ML VIAL ONE; -ONDANSETRON 4 MG/2 ML VIAL IVP ONE; -PROPOFOL 10 MG/ML 20 ML VIAL IV ONE; -SUCCINYLCHOLINE CHLORIDE 100 MG/5 ML SYR IV ONE; -fentaNYL (PF) 50 MCG/ML 2 ML AMP ONE
[2022-05-25 08:33] VITALS: TEMP 97.8
[2022-05-25] MEDS ORDERED: PROPOFOL 10 MG/ML 20 ML VIAL IV ONE (08:55)
[2022-05-25] MEDS ORDERED: LIDOCAINE 2% INJ 20 MG/ML (2 ML VIAL) ONE (08:55)
--- NOTE | 2022-05-25 08:58 | P.GSHP ---
History of Present Illness H&P Date: 05/25/22 Chief Complaint: GERD 67-year-old female here today for EGD. Patient with history of dysphagia and reflux symptoms. Dysphagias worse with solid foods. Has not tried antiacid therapy. Past Medical History Past Medical History: Hypertension Additional Past Medical History / Comment(s): KIDNEY STONES, occasional dysphagia w/solids, seasonal allergies History of Any Multi-Drug Resistant Organisms: None Reported Past Surgical History: Orthopedic Surgery Additional Past Surgical History / Comment(s): BILAT KNEE ARTHRO, RT ROTATOR CU FF, COLONOSCOPY, cystoscopy Past Anesthesia/Blood Transfusion Reactions: No Reported Reaction Additional Past Anesthesia/Blood Transfusion Reaction / Comment(s): STATES SHE GOT A VERY ITCHY RASH DOWN HER LEG AFTER THE LEFT KNEE ARTHO Smoking Status: Never smoker - Past Family History Mother Family Medical History: Cancer Father Family Medical History: Hypertension Additional Family Medical History / Comment(s): AORTIC ANEURYSM Medications and Allergies Home Medications Medication Instructions Recorded Confirmed Type Cholecalciferol [Vitamin D3 (25 25 mcg PO DAILY 05/20/22 05/25/22 History Mcg = 1000 Iu)] L.acidoph,Paracasei, B.lactis 1 each PO DAILY 05/20/22 05/25/22 History [Probiotic] Loratadine [Claritin] 10 mg PO DAILY 05/20/22 05/25/22 History Montelukast [Singulair] 10 mg PO HS 05/20/22 05/25/22 History Vitamin K(Unknown Dose) 1 tab PO DAILY 05/20/22 History amLODIPine [Norvasc] 2.5 mg PO HS 05/20/22 05/25/22 History Allergies Allergy/AdvReac Type Severity Reaction Status Date / Time iodine Allergy Itching. Verified 05/25/22 08:31 RASH topically after surgery nitrofurantoin AdvReac Rash/Hives Verified 05/25/22 08:31 [From Macrobid] sulfamethoxazole AdvReac Rash/Hives Verified 05/25/22 08:31 [From Bactrim] trimethoprim [From Bactrim] AdvReac Rash/Hives Verified 05/25/22 08:31 Surgical - Exam Vital Signs Temp Pulse Resp BP Pulse Ox 97.8 F 74 18 132/81 100 05/25/22 08:32 05/25/22 08:32 05/25/22 08:32 05/25/22 08:32 05/25/22 08:32 Physical exam: General: Well-developed, well-nourished HEENT: Normocephalic, sclerae nonicteric Abdomen: Nontender, nondistended Extremities: No edema Neuro: Alert and oriented Assessment and Plan (1) GERD (gastroesophageal reflux disease) Narrative/Plan: Proceed with upper endoscopy and possible dilation. Risks of bleeding, infection, perforation reviewed. She understands and wishes to proceed. Current Visit: Yes Status: Acute Code(s): K21.9 - GASTRO-ESOPHAGEAL REFLUX DISEASE WITHOUT ESOPHAGITIS SNOMED Code(s): 256656815
--- NOTE | 2022-05-25 09:14 | P.PCN ---
Date of Procedure: 05/25/22 Procedure(s) Performed: Preoperative Dx: GERD, dysphagia Postoperative Dx: Gastritis, distal esophagitis, esophageal stricture, hiatal hernia Procedure: EGD with Bx Anesthesia: Sedation Endoscopist: Dr. Mccarthy Specimens: Antrum, GE junction Endoscopic Procedure: The patient was on the endoscopy table in the left decubitus position. The Olympus gastroscope was inserted into the oropharynx and passed under direct visualization to the region of the third portion of the duodenum. From that point the scope was slowly withdrawn inspecting all surfaces carefully. There were no neoplastic inflammatory or polypoid lesions throughout the duodenum. The pylorus was widely patent. The stomach was carefully inspected. There was mild gastritis present. A biopsy of the antrum took place to rule out H. pylori. Retroflexion revealed a moderate sized hiatal hernia. The GE junction was present 5 cm above the diaphragmatic hiatus. At the GE junction there was circumferential inflammatory changes consistent with reflux esophagitis. There was mild narrowing there. I proceeded to dilate from 12, 13.5, 15 mm. Pressure was held for 1 minute at each size. A biopsy of the GE junction then took place. There was no evidence of any mucosal tearing from the dilation. The remainder the esophagus demonstrated mild tortuosity without inflammatory changes. The patient was then taken to the recovery room in stable condition per anesthesia guidelines. Recommendations: Await biopsy results. Begin antiacid therapy.
[2022-05-25 09:37] VITALS: BP 128/86; PULSE 61; RESP 18
== END 2022-05-25 09:54 | disposition home or self-care (01) ==
LOC: ORWHC2ENDO 08:06
PROVIDERS: ATTEND Surgery
DX: K21.00 Gastro-esophageal reflux disease with esophagitis, without bleeding (principal); K22.2 Esophageal obstruction; K29.50 Unspecified chronic gastritis without bleeding; K44.9 Diaphragmatic hernia without obstruction or gangrene; I10 Essential (primary) hypertension; Z87.442 Personal history of urinary calculi; Z82.49 Family history of ischemic heart disease and other diseases of the circulatory system; Z80.9 Family history of malignant neoplasm, unspecified; Z79.899 Other long term (current) drug therapy; Z88.3 Allergy status to other anti-infective agents; Z88.1 Allergy status to other antibiotic agents; Z88.2 Allergy status to sulfonamides
CPT/HCPCS: 88305; 43239; 43249; J2704; J2001; C1726

== ENCOUNTER → 2023-05-20 | Outpatient (CLI) | payer MEDICARE ==
--- NOTE | 2023-05-23 16:09 | MM ---
Reason for Exam: Screening (asymptomatic). Last screening mammogram was performed 12 month(s) ago. Patient History: Menarche at age 13. First Full-Term at age 25. Postmenopausal. Patient used Hormonal Contraceptives for 5 years. Mother had breast cancer, age 55. Risk Values: Angelica 5 year model risk: 3.2%. NCI Lifetime model risk: 10.8%. Prior Study Comparison: 01/07/2020 Bilateral Screening Mammogram, [facility]. 02/24/2021 Bilateral Screening Mammogram, [facility]. 05/19/2022 Bilateral MG 3D screening mammo w/cad, [facility]. Tissue Density: The breast tissue is heterogeneously dense. This may lower the sensitivity of mammography. Findings: Analyzed By CAD. Pattern appears stable. There is greater parenchymal tissue on the left compared to the right. This is unchanged from comparison studies. Benign calcifications within the right breast. No significant interval changes are evident. No suspicious groups of microcalcifications, spiculated or lobular masses, architectural distortion or other secondary signs of malignancy are mammographically apparent. Overall Assessment: Benign, BI-RAD 2 Management: Screening Mammogram of both breasts in 1 year. A negative mammogram report should not preclude additional follow up of suspicious palpable abnormalities. Patient should continue monthly self breast exam. A clinical breast exam by your physician is recommended on an annual basis and results should be correlated with mammographic findings. Electronically signed and approved by: Alexsander Jesus D.O. Radiologis
== END | disposition home or self-care (01) ==
LOC: RADMAMWWP 10:53
PROVIDERS: ATTEND Obstetrics & Gynecology
DX: Z12.31 Encounter for screening mammogram for malignant neoplasm of breast (principal); Z78.0 Asymptomatic menopausal state; Z80.3 Family history of malignant neoplasm of breast
CPT/HCPCS: 77067

== ENCOUNTER → 2024-05-21 | Outpatient (CLI) | payer MEDICARE ==
--- NOTE | 2024-05-22 09:36 | MM ---
Reason for Exam: Screening (asymptomatic). Last mammogram was performed 1 year(s) and 1 month(s) ago. Patient History: Menarche at age 13. First Full-Term at age 25. Postmenopausal. Patient used Hormonal Contraceptives for 5 years. Mother had breast cancer, age 55. Risk Values: Angelica 5 year model risk: 3.3%. NCI Lifetime model risk: 10.4%. Prior Study Comparison: 02/24/2021 Bilateral Screening Mammogram, [facility]. 05/19/2022 Bilateral MG 3D screening mammo w/cad, [facility]. 05/20/2023 Bilateral MG screening mammo w CAD, [facility]. Tissue Density: The breasts are heterogeneously dense, which may obscure small masses. Findings: Analyzed By CAD. Unchanged bilateral areas of asymmetric density. A few benign vascular and round calcifications are redemonstrated. There is no suspicious group of microcalcifications or new suspicious mass in either breast. Overall Assessment: Benign, BI-RAD 2 Management: Screening Mammogram of both breasts in 1 year. See note below in regards to patient's increased 5 year Angelica score. Patient should continue monthly self-breast exams. A clinical breast exam by your physician is recommended on an annual basis. This exam should not preclude additional follow-up of suspicious palpable abnormalities. Note on Angelica scores and lifetime risk: 1. A Angelica score greater than 3% is considered moderate risk. If this is the case, consider specialist referral to assess eligibility for a risk reducing agent. 2. If overall lifetime risk for the development of breast cancer is 20% or higher, the patient may qualify for future screening with alternating mammogram and breast MRI. Electronically signed and approved by: Kacey Toure M.D. Radiologist
== END | disposition home or self-care (01) ==
LOC: RADMAMWWP 13:38
PROVIDERS: ATTEND Family Medicine
DX: Z12.31 Encounter for screening mammogram for malignant neoplasm of breast (principal); Z78.0 Asymptomatic menopausal state; Z80.3 Family history of malignant neoplasm of breast
CPT/HCPCS: 77063; 77067

== ENCOUNTER 2025-02-26 07:16 | Day surgery (SDC) | payer MEDICARE ==
[2025-02-25 08:29] VITALS: BMI 30.2
[2025-02-26 07:36] VITALS: TEMP 97.2
[2025-02-26] MEDS: IV FLUID CONTINUATION 1,000 ML IV ONE (07:37)
[2025-02-26] MEDS: LACTATED RINGERS 1,000 ML IV SCH (07:43)
[2025-02-26] MEDS ORDERED: PROPOFOL 10 MG/ML 20 ML VIAL IV ONE (07:57)
[2025-02-26] MEDS ORDERED: LIDOCAINE 1% INJ 10MG/ML (20 ML MDV) ONE (07:57)
--- NOTE | 2025-02-26 08:10 | P.GSHP ---
History of Present Illness H&P Date: 02/26/25 Chief Complaint: Colon cancer screening, GERD 69-year-old female here for upper and lower endoscopy. Patient with complaints of chronic reflux. Mild episodes of dysphagia at times. Patient has intermittent episodes of rectal prolapse as well. Happens a few times per magali h. Mild soreness there. Able to reduce manually. Some mild intermittent constipation. Tried MiraLAX but actually made symptoms worse she states. Takes daily omeprazole. Past Medical History Past Medical History: Hypertension Additional Past Medical History / Comment(s): seasonal allergies,KIDNEY STONES History of Any Multi-Drug Resistant Organisms: None Reported Past Surgical History: Orthopedic Surgery Additional Past Surgical History / Comment(s): BILAT KNEE ARTHRO, RT ROTATOR CUFF, COLONOSCOPY, Past Anesthesia/Blood Transfusion Reactions: No Reported Reaction Additional Past Anesthesia/Blood Transfusion Reaction / Comment(s): STATES SHE GOT A VERY ITCHY RASH DOWN HER LEG AFTER THE LEFT KNEE ARTHO Smoking Status: Never smoker - Past Family History Mother Family Medical History: Cancer Father Family Medical History: Hypertension Additional Family Medical History / Comment(s): AORTIC ANEURYSM Medications and Allergies Home Medications Medication Instructions Recorded Confirmed Type L.acidoph,Paracasei, B.lactis 1 each PO DAILY 05/20/22 02/26/25 History [Probiotic] Montelukast [Singulair] 10 mg PO HS 05/20/22 02/26/25 History Vitamin D3/Vitamin K2 (Mk4) 1 each PO DAILY 05/20/22 02/26/25 History [Vitamin K2 Plus D3 Tablet] amLODIPine [Norvasc] 2.5 mg PO HS 05/20/22 02/26/25 History Omeprazole [PriLOSEC] 20 mg PO AC-BRKFST #90 cap 05/25/22 02/26/25 Rx Fexofenadine HCl [Missy Allergy] 180 mg PO HS 02/25/25 02/26/25 History Allergies Allergy/AdvReac Type Severity Reaction Status Date / Time iodine Allergy Itching. Verified 02/26/25 07:33 RASH topically after surgery nitrofurantoin AdvReac Rash/Hives Verified 02/26/25 07:33 [From Macrobid] sulfamethoxazole AdvReac Rash/Hives Verified 02/26/25 07:33 [From Bactrim] trimethoprim [From Bactrim] AdvReac Rash/Hives Verified 02/26/25 07:33 Surgical - Exam Vital Signs Temp Pulse Resp BP Pulse Ox 97.2 F L 74 16 149/92 96 02/26/25 07:34 02/26/25 07:34 02/26/25 07:34 02/26/25 07:34 02/26/25 07:34 Physical exam: General: Well-developed, well-nourished HEENT: Normocephalic, sclerae nonicteric Abdomen: Nontender, nondistended Extremities: No edema Neuro: Alert and oriented Assessment and Plan (1) Colon cancer screening Narrative/Plan: Will proceed with upper and lower endoscopy at this time. Current Visit: Yes Status: Acute Code(s): Z12.11 - ENCOUNTER FOR SCREENING FOR MALIGNANT NEOPLASM OF COLON SNOMED Code(s): 828147005
--- NOTE | 2025-02-26 08:31 | P.PCN ---
Date of Procedure: 02/26/25 Procedure(s) Performed: PREOPERATIVE DIAGNOSIS: GERD, screening POSTOPERATIVE DIAGNOSIS: Hiatal hernia, gastritis, melanosis coli, poor prep PROCEDURE: 1. EGD with biopsy 2. Colonoscopy ANESTHESIA: MAC SURGEON: Kash Mccarthy M.D. SPECIMENS: Antrum ENDOSCOPIC PROCEDURE: The patient was on the endoscopy table in the left decubitus position. The Olympus gastroscope was inserted into the oropharynx and passed under direct visualization to the region of the third portion of the duodenum. From that point the scope was slowly withdrawn inspecting all surfaces carefully. There were no neoplastic inflammatory or polypoid lesions throughout the duodenum. The pylorus was widely patent. The stomach was carefully inspected. There was mild diffuse gastritis present. A biopsy of the antrum took place to rule out H. pylori. Retroflexion revealed a moderate-sized hiatal hernia. The GE junction was present at 38 cm while the diaphragmatic hiatus was present at 43 cm. The esophagus was examined and no neoplastic inflammatory polypoid lesions were seen. There was no stricture seen. The patient was kept on the endoscopy table in the left decubitus position. The Olympus colonoscope was inserted into the anus and passed under direct visualization to the base of the cecum. The appendiceal orifice was visualized. From that point the scope was slowly withdrawn inspecting all surfaces carefully. There were no neoplastic inflammatory or polypoid lesions throughout the cecum, ascending, transverse, descending, sigmoid and rectum. The patient's prep was suboptimal. There was some retained solid and liquid stool scattered throughout the colon. The patient's colon mucosa was dark in color consistent with melanosis coli. There was no visualized diverticulosis. Digital rectal examination was normal. The patient was taken to the recovery room in stable condition per anesthesia guidelines. RECOMMENDATIONS: Continue antiacid therapy. Resume diet. Continue stool softeners. If symptoms of rectal prolapse persist or worsen will advise colorectal surgery consultation for laparoscopic robotic assisted pexy.
[2025-02-26 08:53] VITALS: BP 142/88; PULSE 88; RESP 16
== END 2025-02-26 09:24 | disposition home or self-care (01) ==
LOC: ORWHC2ENDO 07:16
PROVIDERS: ATTEND Surgery
DX: Z12.11 Encounter for screening for malignant neoplasm of colon (principal); K21.9 Gastro-esophageal reflux disease without esophagitis; K29.50 Unspecified chronic gastritis without bleeding; K44.9 Diaphragmatic hernia without obstruction or gangrene; K63.89 Other specified diseases of intestine; K62.3 Rectal prolapse; R13.10 Dysphagia, unspecified; K59.00 Constipation, unspecified; I10 Essential (primary) hypertension; Z88.2 Allergy status to sulfonamides; Z88.8 Allergy status to other drugs, medicaments and biological substances; Z88.1 Allergy status to other antibiotic agents
CPT/HCPCS: 43239; J2003; J2704; G0121; 88305

== ENCOUNTER → 2025-06-17 | Outpatient (CLI) | payer MEDICARE ==
--- NOTE | 2025-06-17 18:08 | MM ---
Reason for Exam: Screening (asymptomatic). Last screening mammogram was performed 12 month(s) ago. Patient History: Menarche at age 13. First Full-Term at age 25. Postmenopausal. Patient used Hormonal Contraceptives for 5 years. Mother had breast cancer, age 55. Risk Values: Angelica 5 year model risk: 3.3%. NCI Lifetime model risk: 9.9%. Prior Study Comparison: 05/19/2022 Bilateral MG 3D screening mammo w/cad, [facility]. 05/20/2023 Bilateral MG screening mammo w CAD, [facility]. 05/21/2024 Bilateral MG 3D screening mammo w/cad, [facility]. Tissue Density: The breasts are heterogeneously dense, which may obscure small masses. Findings: Analyzed By CAD. Grouped punctate and round calcifications right upper outer quadrant and benign vascular calcifications on the left are unchanged. There is no suspicious group of microcalcifications or new suspicious mass in either breast. Overall Assessment: Benign, BI-RAD 2 Management: Screening Mammogram of both breasts in 1 year. See note below in regards to the patient's increased 5 year Angelica score. Patient should continue monthly self-breast exams. A clinical breast exam by your physician is recommended on an annual basis. This exam should not preclude additional follow-up of suspicious palpable abnormalities. Note on Angelica scores and lifetime risk: 1. A Angelica score greater than 3% is considered moderate risk. If this is the case, consider specialist referral to assess eligibility for a risk reducing agent. 2. If overall lifetime risk for the development of breast cancer is 20% or higher, the patient may qualify for future screening with alternating mammogram and breast MRI. [facility], , 06/17/2025 6:05 PM. Electronically signed and approved by: Kacey Toure M.D. Radiologist
== END | disposition home or self-care (01) ==
LOC: RADMAMWWP 12:58
PROVIDERS: ATTEND Family Medicine
DX: Z12.31 Encounter for screening mammogram for malignant neoplasm of breast (principal); R92.333 Mammographic heterogeneous density, bilateral breasts; R92.1 Mammographic calcification found on diagnostic imaging of breast; Z78.0 Asymptomatic menopausal state; Z80.3 Family history of malignant neoplasm of breast; Z92.0 Personal history of contraception
CPT/HCPCS: 77063; 77067